=== PATIENT | male | born 1945 | race Caucasian/White ===

== ENCOUNTER 2016-05-10 13:00 | Outpatient (CLI) | payer MEDICARE, MEDICAID | END 2016-05-10 23:59 | disposition home or self-care (01) | LOC: WOU 13:00 | PROVIDERS: ATTEND Podiatrist Foot & Ankle Surgery | PROC: 0HBRXZZ Excision of Toe Nail, External Approach (ICD-10-PCS; principal; 2016-05-10) | DX: B35.1 Tinea unguium (principal); M79.675 Pain in left toe(s); M79.674 Pain in right toe(s); L60.8 Other nail disorders; I69.359 Hemiplegia and hemiparesis following cerebral infarction affecting unspecified side | CPT/HCPCS: G0463 ==

== ENCOUNTER 2016-10-27 10:12 | Emergency (ER) | payer MEDICARE, MEDICAID ==
[~2016-10-27] VITALS: Ht 172.7 cm; Wt 68.0 kg
--- NOTE | 2016-10-27 10:18 | NUR ---
ABDOMINAL PAIN SINCE LAST NIGHT. STACIA N/V/Italo. LORENA PT. AWAITING MD ORDER
[2016-10-27] MEDS ORDERED: KETOROLAC TROMETHAMINE INJ 30 MG/ML VIAL ONE (10:43)
[2016-10-27 10:51] LABS: BASOPHILS % (AUTO) 0.2 % (0.0-2.0); EOSINOPHILS % (AUTO) 0.2 % (0.0-6.0); HEMATOCRIT 45 % (39-51); HEMOGLOBIN 14.7 g/dL (13.5-17.5); LYMPHOCYTES # (AUTO) 1.2 /CMM (0.8-4.8); LYMPHOCYTES % (AUTO) 9.1 % (20.0-44.0); MEAN CORPUSCULAR HEMOGLOBIN 29 PG (26.0-33.0); MEAN CORPUSCULAR HGB CONC 33 g/dl (31.0-36.0); MEAN CORPUSCULAR VOLUME 87 fL (80-96); MONOCYTES # (AUTO) 0.7 /CMM (0.1-1.30); MONOCYTES % (AUTO) 5.6 % (2.0-12.0); NEUTROPHILS # (AUTO) 11.1 /CMM (1.8-8.9); NEUTROPHILS % (AUTO) 84.9 % (43.0-81.0); PLATELET COUNT (AUTO) 178 /CMM (150-450); RDW COEFFICIENT OF VARIATION 13.1 (11.5-15.0); RED BLOOD CELL COUNT(AUTO) 5.15 MIL/uL (4.5-6.0)
[2016-10-27] MEDS ORDERED: KETOROLAC TROMETHAMINE 15 MG/ML VIAL ONE (10:57)
--- NOTE | 2016-10-27 10:57 | NUR ---
VERBAL ORDER FROM DR ABBE GUTHRIE TORADOL 30 MG IV CHANGE TO TORADOL 15 MG IVP
[2016-10-27] MEDS ORDERED: KETOROLAC TROMETHAMINE INJ 30 MG/ML VIAL IV ONE ×2 (11:00→14:30)
[2016-10-27 11:05] LABS: ALANINE AMINOTRANSFERASE 17 U/L (12-78); ALKALINE PHOSPHATASE 87 U/L (46-116); ASPARTATE AMINOTRANSFERASE 21 U/L (15-37); BILIRUBIN,TOTAL 0.6 mg/dL (0.2-1.0); CALCIUM, SERUM 9.1 mg/dL (8.5-10.1); CARBON DIOXIDE 28 mmol/L (21-32); CHLORIDE 104 mmol/L (98-107); CREATININE 1.5 mg/dL (0.6-1.3); GLUCOSE 127 mg/dL (74-106); POTASSIUM 3.9 mmol/L (3.5-5.1); SODIUM SERUM 140 mmol/L (136-145); TOTAL PROTEIN, SERUM 7.3 g/dL (6.4-8.2); UREA NITROGEN, BLOOD 20 mg/dL (7-18)
--- NOTE | 2016-10-27 11:29 | NUR ---
CALLED RADIOLOGY TO FOLLOW UP W ULTRASOUND
--- NOTE | 2016-10-27 11:29 | NUR ---
PT STILL UNABLE TO PROVIDE URINE SAMPLE DR MCADAMS MADE AWARE
--- NOTE | 2016-10-27 12:11 | NUR ---
PRITI GAUTAM [facility] [phone]
--- NOTE | 2016-10-27 12:18 | NUR ---
WATER CONTROL STATION ENGINEER AT BEDSIDE
--- NOTE | 2016-10-27 12:32 | NUR ---
PT UNABLE TO PROVIDE URINE PER PT DUE TO PROSTATE PROBLEM. VERBAL ORDER DR ABBE MCDONNELL STRAIGHT IN AND OUT
--- NOTE | 2016-10-27 13:01 | NUR ---
URINE SAMPLE COLLECTED SENT TO LAB
[2016-10-27 13:28] LABS: APPEARANCE,URINE Clear (CLEAR); BILIRUBIN,URINE SMALL (NEGATIVE); BLOOD, URINE Large Ery/uL (NEGATIVE); COLOR,URINE Yellow (YELLOW); KETONES,URINE Trace (NEGATIVE); LEUKOCYTE ESTERASE ,URINE Trace (NEGATIVE); NITRITE, URINE Negative (NEGATIVE); PH,URINE 5.5 (5.0-8.0); PROTEIN,URINE 100 mg/dl (NEGATIVE); UGLUCOSE Negative (NEGATIVE); UROBILINOGEN,URINE 0.2 EU/dL (0.2)
[2016-10-27] MEDS ORDERED: ONDANSETRON 4 MG TAB.RAPDIS ONE (13:28)
[2016-10-27 13:30] LABS: BACTERIA,URINE 1+ /HPF (None Seen); RBC,URINE 21-50 /HPF (0-2); SQUAMOUS EPITHELIAL CELL,UR Few /HPF (None Seen)
--- NOTE | 2016-10-27 13:30 | NUR ---
VERBAL ORDER FROM DR ABBE GARCIA 4 MG SL X1 NV
[2016-10-27 14:10] VITALS: BP 147/83
[2016-10-27] MEDS ORDERED: ONDANSETRON HCL/PF - ER 4 MG/2 ML VIAL IV ONE (14:30)
[2016-10-27] MEDS ORDERED: CIPROFLOXACIN IV RTU 400 MG in PREMIX 1 EA IV SCH (14:30)
--- NOTE | 2016-10-27 15:13 | NUR ---
Patient discharged to home in stable condition. Written and verbal after care instructions given. Patient verbalizes understanding of instruction.
--- NOTE | 2016-10-27 15:13 | NUR ---
IV removed. Catheter intact and site benign. Pressure and 4x4 applied to site. No bleeding noted.
== END 2016-10-27 15:28 | disposition home or self-care (01) ==
LOC: ER 10:16
DX: N45.2 Orchitis (principal); E78.5 Hyperlipidemia, unspecified; I10 Essential (primary) hypertension; N40.0 Benign prostatic hyperplasia without lower urinary tract symptoms
CPT/HCPCS: 36415; 76870; 80053; 81001; 85025; 87086; 96365; 96375; 99285; A4216; A4606; J0744; J1885; J2405; Q0162; 81000-TC; Z7610

== ENCOUNTER 2018-06-05 11:30 | Outpatient (CLI) | payer MEDICARE, MEDICAID | END 2018-06-05 23:59 | disposition home or self-care (01) | LOC: WOU 11:30 | PROVIDERS: ATTEND Podiatrist Foot & Ankle Surgery | DX: B35.1 Tinea unguium (principal); T84.84XA Pain due to internal orthopedic prosthetic devices, implants and grafts, initial encounter; M25.571 Pain in right ankle and joints of right foot; I69.359 Hemiplegia and hemiparesis following cerebral infarction affecting unspecified side; B35.3 Tinea pedis; M65.871 Other synovitis and tenosynovitis, right ankle and foot; I70.229 Atherosclerosis of native arteries of extremities with rest pain, unspecified extremity | CPT/HCPCS: 73600; 87102; 93925; 93970; G0463; 88304-TC; 88311-TC; 88312-TC ==

== ENCOUNTER 2019-12-08 10:38 | Emergency (ER) | payer MEDICARE, OTHER ==
[~2019-12-08] VITALS: Ht 162.6 cm; Wt 74.8 kg
--- NOTE | 2019-12-08 11:15 | NUR ---
bib self with c/o bilateral foot pain of 4/10 x 3 days. no swelling no discoloration. no episode of fall. awaiting for md good
--- NOTE | 2019-12-08 11:48 | NUR ---
seen and evaluated by MD Peoples with new orders noted.
--- NOTE | 2019-12-08 12:08 | NUR ---
X-RAY TECH AT BEDSIDE DOING X RAY
[2019-12-08 15:35] VITALS: BP 132/76
== END 2019-12-08 15:20 | disposition home or self-care (01) ==
LOC: ER 10:47
DX: I73.9 Peripheral vascular disease, unspecified (principal); M79.672 Pain in left foot; M79.671 Pain in right foot; I10 Essential (primary) hypertension; E78.5 Hyperlipidemia, unspecified; N40.0 Benign prostatic hyperplasia without lower urinary tract symptoms
CPT/HCPCS: 73630-TC; 93926-TC

== ENCOUNTER 2020-05-17 13:49 | Emergency (ER) | payer MEDICARE, OTHER ==
[~2020-05-17] VITALS: Ht 172.7 cm; Wt 72.6 kg
[2020-05-17 14:11] VITALS: BP 157/75
--- NOTE | 2020-05-17 15:28 | NUR ---
Patient a/ox4, ambulatory with steady gait. No distress noted. Patient discharged to home in stable condition. Written and verbal after care instructions given. Patient verbalizes understanding of instruction.
== END 2020-05-17 15:29 | disposition home or self-care (01) ==
LOC: ER 14:02
DX: M77.32 Calcaneal spur, left foot (principal); M79.672 Pain in left foot; I73.89 Other specified peripheral vascular diseases; I10 Essential (primary) hypertension; E78.5 Hyperlipidemia, unspecified
CPT/HCPCS: 73630-TC

== ENCOUNTER 2020-09-05 11:00 | Outpatient (CLI) | payer MEDICARE, OTHER | END 2020-09-05 23:59 | disposition home or self-care (01) | LOC: WOU 11:00 | PROVIDERS: ATTEND Podiatrist Foot & Ankle Surgery | DX: M72.2 Plantar fascial fibromatosis (principal); L60.2 Onychogryphosis; M79.672 Pain in left foot; B35.1 Tinea unguium; M79.675 Pain in left toe(s); M79.674 Pain in right toe(s); Z79.02 Long term (current) use of antithrombotics/antiplatelets; Z79.82 Long term (current) use of aspirin | CPT/HCPCS: 11042; 11055; G0463 ==

== ENCOUNTER 2020-10-25 16:01 | Outpatient (CLI) | payer MEDICARE, OTHER | END 2020-10-25 23:59 | disposition home or self-care (01) | LOC: WOU 16:01 | PROVIDERS: ATTEND Podiatrist Foot & Ankle Surgery | DX: M72.2 Plantar fascial fibromatosis (principal); B35.1 Tinea unguium; L60.2 Onychogryphosis; M79.672 Pain in left foot; M79.675 Pain in left toe(s); M79.674 Pain in right toe(s); Z79.82 Long term (current) use of aspirin; Z79.02 Long term (current) use of antithrombotics/antiplatelets | CPT/HCPCS: G0463 ==

== ENCOUNTER 2020-12-12 11:23 | Emergency (ER) | payer MEDICARE, OTHER ==
[~2020-12-12] VITALS: Ht 172.7 cm; Wt 83.9 kg
[2020-12-12 11:37] VITALS: BP 162/72
[2020-12-12] MEDS ORDERED: ACETAMINOPHEN ES 500 MG TABLET PO ONE (12:00)
[2020-12-12] MEDS ORDERED: ACETAMINOPHEN ES 500 MG TABLET ONE (12:05)
== END 2020-12-12 13:00 | disposition home or self-care (01) ==
LOC: ER 11:27
DX: M79.672 Pain in left foot (principal); I10 Essential (primary) hypertension; E78.5 Hyperlipidemia, unspecified
CPT/HCPCS: 73630-TC

== ENCOUNTER 2021-03-02 12:45 | Emergency (ER) | payer MEDICARE, OTHER ==
[~2021-03-02] VITALS: Ht 170.2 cm; Wt 77.1 kg
--- NOTE | 2021-03-02 13:33 | NUR ---
L INNER THIGH/GROIN AREA PAIN X 2 DAYS. DENIES ANY TRAUMA. PT ALSO C/O CHRONIC L FOOT PAIN. BREATHING IS REGULAR AND UNLABORED. PT AWAITING MD ORDONEZ.
[2021-03-02] MEDS: ACETAMINOPHEN 325 MG TABLET PO ONE (15:30)
[2021-03-02] MEDS ORDERED: ACETAMINOPHEN 325 MG TABLET ONE ×2 (15:34→15:56)
--- NOTE | 2021-03-02 16:01 | NUR ---
Patient discharged to home in stable condition. Written and verbal after care instructions given. Patient verbalizes understanding of instruction.
--- NOTE | 2021-03-02 16:02 | NUR ---
650MG OF TYLENOL WASTED.
[2021-03-02 16:03] VITALS: BP 155/86
--- NOTE | 2021-03-02 16:03 | NUR ---
Patient discharged to home in stable condition. Written and verbal after care instructions given. Patient verbalizes understanding of instruction.
== END 2021-03-02 16:04 | disposition home or self-care (01) ==
LOC: ER 12:56
DX: M79.652 Pain in left thigh (principal); I10 Essential (primary) hypertension; E78.5 Hyperlipidemia, unspecified
CPT/HCPCS: 73552; 93971-TC

== ENCOUNTER 2021-04-05 13:37 | Inpatient (IN) | payer MEDICARE, OTHER ==
[~2021-04-05] VITALS: Ht 172.7 cm; Wt 79.4 kg
--- NOTE | 2021-04-05 14:01 | NUR ---
WALK-IN FROM HOME AOX4 C/O L LEG PAIN SINCE YESTERDAY. DENIES INJURY OR TRAUMA. PT CHANGED INTO GOWN. AWAITING MD ORDONEZ.
--- NOTE | 2021-04-05 14:37 | NUR ---
XRAY AT BEDSIDE
--- NOTE | 2021-04-05 15:41 | NUR ---
PT CAME FROM [facility] CONFIRM WITH AMANDA [phone]. WILL ACCEPT PT BACK ONCE MEDICALLY CLEARED.
[2021-04-05 15:45] LABS: BASOPHILS % (AUTO) 0.5 % (0.0-2.0); EOSINOPHILS % (AUTO) 0.8 % (0.0-6.0); HEMATOCRIT 39 % (39-51); HEMOGLOBIN 13.1 g/dL (13.5-17.5); LYMPHOCYTES # (AUTO) 1.4 K/uL (0.8-4.8); LYMPHOCYTES % (AUTO) 17.3 % (20.0-44.0); MEAN CORPUSCULAR HGB CONC 33 g/dl (31.0-36.0); MEAN CORPUSCULAR VOLUME 91 fL (80-96); MONOCYTES # (AUTO) 0.7 K/uL (0.1-1.30); NEUTROPHILS # (AUTO) 5.9 K/uL (1.8-8.9); NEUTROPHILS % (AUTO) 72.4 % (43.0-81.0); PLATELET COUNT (AUTO) 172 K/uL (150-450); RED BLOOD CELL COUNT(AUTO) 4.31 MIL/uL (4.5-6.0); WHITE BLOOD COUNT (AUTO) 8.2 K/uL (4.3-11.0)
[2021-04-05] MEDS ORDERED: FERR325T23 PO (15:48)
[2021-04-05] MEDS ORDERED: TICA90TA PO (15:48)
[2021-04-05] MEDS ORDERED: FINA5TAB3 PO (15:48)
[2021-04-05] MEDS ORDERED: LOSA100T31 PO (15:48)
[2021-04-05] MEDS ORDERED: ASPI-1169 PO (15:48)
[2021-04-05] MEDS ORDERED: TAMS-12 PO (15:48)
[2021-04-05] MEDS ORDERED: SIMV-46 PO (15:48)
--- NOTE | 2021-04-05 16:08 | NUR ---
COVID ANTIGEN SWAB COLLECTED
[2021-04-05 16:16] LABS: CALCIUM, SERUM 9.4 mg/dL (8.5-10.1); CREATININE 1.3 mg/dL (0.6-1.3); POTASSIUM 4.3 mmol/L (3.5-5.1)
[2021-04-05 16:17] LABS: CALCIUM, SERUM 9.5 mg/dL (8.5-10.1); CREATININE 1.3 mg/dL (0.6-1.3); POTASSIUM 4.4 mmol/L (3.5-5.1)
[2021-04-05 16:22] LABS: ALBUMIN 3.8 g/dL (3.4-5.0); BILIRUBIN,TOTAL 0.5 mg/dL (0.2-1.0); TOTAL PROTEIN, SERUM 7.4 g/dL (6.4-8.2)
[2021-04-05 16:23] LABS: ALBUMIN 3.8 g/dL (3.4-5.0); BILIRUBIN,DIRECT 0.2 mg/dL (0.0-0.2); BILIRUBIN,TOTAL 0.5 mg/dL (0.2-1.0); TOTAL PROTEIN, SERUM 7.4 g/dL (6.4-8.2)
--- NOTE | 2021-04-05 16:24 | NUR ---
IV LINE ESTABLISHED
[2021-04-05] MEDS ORDERED: Z GUARD REMEDY 4 OZ OINT TP PRN (16:30)
[2021-04-05] MEDS ORDERED: MAG HYDROX/AL HYDROX/SIMETH 30 ML UDC PO PRN (16:30)
[2021-04-05] MEDS ORDERED: ONDANSETRON HCL/PF 4 MG/2 ML VIAL IVP PRN (16:30)
[2021-04-05] MEDS ORDERED: TEMAZEPAM 15 MG CAPSULE PO PRN (16:30)
[2021-04-05] MEDS ORDERED: ACETAMINOPHEN 325 MG TABLET PO PRN (16:30)
[2021-04-05] MEDS ORDERED: HYDROCODONE/APAP 5/325MG TABLET PO PRN (16:30)
[2021-04-05] MEDS ORDERED: MAGNESIUM HYDROXIDE 30 ML UDC PO PRN (16:30)
--- NOTE | 2021-04-05 17:05 | NUR ---
PT AMBULATED TO BATHROOM
--- NOTE | 2021-04-05 17:54 | NUR ---
DR.AMIR ELIAS PT PRIMARY .
--- NOTE | 2021-04-05 17:56 | NUR ---
PT ALPA GAUTAM.
[2021-04-05] MEDS ORDERED: APIXABAN 5 MG TABLET ONE (18:48)
[2021-04-05] MEDS: APIXABAN 5 MG TABLET PO SCH (18:50)
--- NOTE | 2021-04-05 20:01 | NUR ---
PATIENT ROOM MOVED TO BED 12. EATING DINNNER. VERY CONFUSED.
--- NOTE | 2021-04-05 20:38 | NUR ---
ASSIGNED TO [place] [id number]
--- NOTE | 2021-04-05 20:44 | NUR ---
report given to 3 suzie rn
--- NOTE | 2021-04-05 21:08 | NUR ---
PT TRANSFERRED TO THRID FLOOR, VSS, IV LINE INTACT IN PLACE 20G LFA.
[2021-04-05] MEDS ORDERED: TAMSULOSIN 0.4 MG CAP.SR.24H PO SCH (22:00)
[2021-04-05] MEDS ORDERED: SIMVASTATIN 20 MG TABLET PO SCH (22:00)
[2021-04-05 23:04] VITALS: BP 151/62
--- NOTE | 2021-04-06 06:24 | NUR ---
MS RN NOTES AWAKE & RESPONSIVE. NOT IN ANY DISTRESS. NO SOB NOTED. DENIES ANY PAIN OR DISCOMFORT AT THIS TIME. WITH IV-HL PATENT & INTACT. MONITORED ACCORDINGLY. CALL LIGHT WITHIN REACH. BED IN LOWEST POSITION. SR UP X 2 FOR SAFETY. WILL ENDORSE TO NEXT SHIFT.
[2021-04-06 06:51] LABS: BASOPHILS % (AUTO) 0.3 % (0.0-2.0); EOSINOPHILS % (AUTO) 1.1 % (0.0-6.0); HEMATOCRIT 40 % (39-51); HEMOGLOBIN 13.6 g/dL (13.5-17.5); LYMPHOCYTES # (AUTO) 1.6 K/uL (0.8-4.8); LYMPHOCYTES % (AUTO) 21.7 % (20.0-44.0); MEAN CORPUSCULAR HGB CONC 34 g/dl (31.0-36.0); MEAN CORPUSCULAR VOLUME 91 fL (80-96); MONOCYTES # (AUTO) 0.7 K/uL (0.1-1.30); MONOCYTES % (AUTO) 9.7 % (2.0-12.0); NEUTROPHILS # (AUTO) 4.9 K/uL (1.8-8.9); NEUTROPHILS % (AUTO) 67.2 % (43.0-81.0); PLATELET COUNT (AUTO) 163 K/uL (150-450); RED BLOOD CELL COUNT(AUTO) 4.36 MIL/uL (4.5-6.0); WHITE BLOOD COUNT (AUTO) 7.3 K/uL (4.3-11.0)
[2021-04-06 07:23] LABS: CALCIUM, SERUM 9.2 mg/dL (8.5-10.1); CREATININE 1.2 mg/dL (0.6-1.3); MAGNESIUM 1.9 mg/dL (1.8-2.4); PHOSPHORUS 3.9 mg/dL (2.5-4.9); POTASSIUM 4.3 mmol/L (3.5-5.1)
[2021-04-06] MEDS ORDERED: PANTOPRAZOLE 40 MG TABLET.DR PO SCH (07:30)
--- NOTE | 2021-04-06 07:52 | NUR ---
MS RN OPENING NOTES RECEIVED PATIENT WALKING IN THE ROOM, DRESSED UP AND WILLING TO GO HOME. AT THIS TIME WAITING FOR THE DOCTOR. A/O X3. PATIENT ON ROOM AIR; BREATHING EVEN AND UNLABORED. NO COMPLAINS OF PAIN AT THIS TIME. REMOVED HIS IV LINE RECOVERY AGENT AND REFUSES REINSERTION AT THIS TIME. SAFETY PRECAUTIONS IN PLACE; BED IN LOW POSITION AND LOCKED, RAILS UP X2, CALL LIGHT WITHIN REACH. WILL CONTINUE TO MONITOR PATIENT.
[2021-04-06] MEDS: APIXABAN 5 MG TABLET PO SCH (08:25)
[2021-04-06 08:30] VITALS: BP 129/62
[2021-04-06] MEDS ORDERED: FINASTERIDE (5 MG) 5 MG TABLET PO SCH (09:00)
[2021-04-06] MEDS ORDERED: FERROUS SULFATE (325 MG) 325 MG/TAB TABLET PO SCH (09:00)
[2021-04-06] MEDS ORDERED: LOSARTAN POTASSIUM 50 MG TABLET PO SCH (09:00)
[2021-04-06] MEDS ORDERED: ASPIRIN 81 MG TAB.CHEW PO SCH (09:00)
[2021-04-06] MEDS ORDERED: TICAGRELOR 90 MG TABLET PO SCH (09:00)
[2021-04-06 09:14] LABS: THYROID STIMULATING HORMONE 1.893 uIU/mL (0.358-3.74)
[2021-04-06] MEDS ORDERED: APIX5TAB PO ×2 (09:14)
--- NOTE | 2021-04-06 14:14 | NUR ---
MS HUMAN RESOURCES TEAM MEMBER NOTES PATIENT DISCHARGED HOME IN MEDICALLY STABLE CONDITION. PATIENT ABLE TO MAKE NEEDS KNOWN. ALL DISCHARGE PAPERWORK READY AND TEACHING PROVIDED TO PATIENT REGARDING DISCHARGE INSTRUCTIONS; PATIENT VERBALIZED UNDERSTANDING. BELONGINGS ACCOUNTED FOR AND PAERWORK SIGNED BY PATIENT. MEDICATION PRESCRIPTION GIVEN TO PATIENT AND EXPLAINED MEDICATION INDICATION AND POSSIBLE SIDE EFFECTS. PATIENT VERBALIZED UNDERSTANDING. IV ACCESS REMOVED. PATIENT LEFT THE FLOOR ACCOMPANIED BY RN. OUTSIDE MET BY FRIEND AND LEFT THE HOSPITAL VIA PRIVATE CAR.
== END 2021-04-06 14:15 | DRG 301 ==
LOC: ER 13:47 → TRANSITION 17:10 → MED 21:10
PROVIDERS: ADMIT Nurse Practitioner Acute Care; ATTEND Legal Medicine
DX: I82.412 Acute embolism and thrombosis of left femoral vein (principal); I25.10 Atherosclerotic heart disease of native coronary artery without angina pectoris; F03.90 Unspecified dementia, unspecified severity, without behavioral disturbance, psychotic disturbance, mood disturbance, and anxiety; D63.8 Anemia in other chronic diseases classified elsewhere; I73.9 Peripheral vascular disease, unspecified; I10 Essential (primary) hypertension; Z86.73 Personal history of transient ischemic attack (TIA), and cerebral infarction without residual deficits; E78.5 Hyperlipidemia, unspecified; N40.0 Benign prostatic hyperplasia without lower urinary tract symptoms; Z87.891 Personal history of nicotine dependence; Z91.19 Patient's noncompliance with other medical treatment and regimen; R79.89 Other specified abnormal findings of blood chemistry; Z20.822 Contact with and (suspected) exposure to COVID-19
CPT/HCPCS: 36415; 71045-TC; 73590-TC; 80048-TC; 80053-TC; 80076-TC; 83735-TC; 84100-TC; 84443-TC; 85025-TC; 85730-TC; 87081-TC; 93971-TC; 97116-TC; 97530-TC; G0378

== ENCOUNTER 2021-04-18 11:27 | Emergency (ER) | payer MEDICARE, MEDICAID ==
[~2021-04-18] VITALS: Ht 167.6 cm; Wt 68.0 kg
[~2021-04-18 11:27] MED LIST: ASPI-1169 PO; FERR325T23 PO; FINA5TAB3 PO; LOSA100T31 PO; SIMV-46 PO; TAMS-12 PO; TICA90TA PO
[2021-04-18 11:41] VITALS: BP 136/74
[2021-04-18] MEDS ORDERED: HYDROCODONE/APAP 5/325MG TABLET PO ONE (12:30)
[2021-04-18] MEDS ORDERED: HYDROCODONE/APAP 5/325MG TABLET ONE (12:30)
--- NOTE | 2021-04-18 12:31 | NUR ---
CALLED DR. ELIAS OFFICE [phone] CALLING BACK AFTER LUNCH.
--- NOTE | 2021-04-18 13:08 | NUR ---
[facility]: [phone] CARLO GAUTAM [phone]
--- NOTE | 2021-04-18 13:14 | NUR ---
[facility] CALLED FOR TRANSPORT ETA 60 MINS.
--- NOTE | 2021-04-18 13:15 | NUR ---
Called [facility]. Per staff, unable to send transportation for pick out hand due to no locomotive driver available today. Primary RN aware.
--- NOTE | 2021-04-18 14:44 | NUR ---
CALLED [facility] FOR UPDATE NEW ETA 10 MINS.
--- NOTE | 2021-04-18 15:05 | NUR ---
REPORT GIVEN TO EMT FOR PT TRANSFER BACK TO LONG TERM.
== END 2021-04-18 15:06 | disposition home or self-care (01) ==
LOC: ER 11:33
DX: I82.402 Acute embolism and thrombosis of unspecified deep veins of left lower extremity (principal); I10 Essential (primary) hypertension; E78.5 Hyperlipidemia, unspecified; Z60.2 Problems related to living alone; Z79.899 Other long term (current) drug therapy; Z79.82 Long term (current) use of aspirin

== ENCOUNTER 2021-04-24 09:57 | Emergency (ER) | payer MEDICARE, OTHER ==
[~2021-04-24] VITALS: Ht 167.6 cm; Wt 73.3 kg
[2021-04-24 10:16] VITALS: BP 127/83
[2021-04-24] MEDS ORDERED: ACETAMINOPHEN ES 500 MG TABLET ONE (10:49)
--- NOTE | 2021-04-24 10:51 | NUR ---
CALLED [facility] TO SET UP BLS TRANSPORT BACK TO [facility] ETA 1136
[2021-04-24] MEDS ORDERED: ACETAMINOPHEN ES 500 MG TABLET PO ONE (11:00)
--- NOTE | 2021-04-24 11:52 | NUR ---
seen and evaluated by dr vargas. medically cleared. [facility] condition.
== END 2021-04-24 11:53 | disposition home or self-care (01) ==
LOC: ER 09:59
DX: I82.402 Acute embolism and thrombosis of unspecified deep veins of left lower extremity (principal); F03.90 Unspecified dementia, unspecified severity, without behavioral disturbance, psychotic disturbance, mood disturbance, and anxiety; I10 Essential (primary) hypertension; E78.5 Hyperlipidemia, unspecified; Z60.2 Problems related to living alone; Z79.899 Other long term (current) drug therapy; Z79.82 Long term (current) use of aspirin

== ENCOUNTER → 2021-06-01 | Outpatient (CLI) | payer MEDICARE, OTHER | END | disposition home or self-care (01) | LOC: WOU 11:30 | PROVIDERS: ATTEND Podiatrist Foot & Ankle Surgery | DX: M72.2 Plantar fascial fibromatosis (principal); B35.1 Tinea unguium; R60.0 Localized edema; M79.672 Pain in left foot; Z79.82 Long term (current) use of aspirin; Z79.02 Long term (current) use of antithrombotics/antiplatelets | CPT/HCPCS: G0463 ==

== ENCOUNTER 2021-06-07 12:49 | Outpatient (CLI) | payer MEDICARE, OTHER | END 2021-06-07 23:59 | disposition home or self-care (01) | LOC: MRI 12:49 | PROVIDERS: ATTEND Podiatrist Foot & Ankle Surgery | DX: M77.32 Calcaneal spur, left foot (principal); M79.89 Other specified soft tissue disorders | CPT/HCPCS: 73718-TC; 73721-TC ==

== ENCOUNTER 2021-06-08 10:40 | Outpatient (CLI) | payer MEDICARE, OTHER | END 2021-06-08 23:59 | disposition home health service (06) | LOC: WOU 10:40 | PROVIDERS: ATTEND Podiatrist Foot & Ankle Surgery | DX: M72.2 Plantar fascial fibromatosis (principal); M77.32 Calcaneal spur, left foot; B35.1 Tinea unguium; R60.0 Localized edema; M79.672 Pain in left foot; Z79.82 Long term (current) use of aspirin; Z79.02 Long term (current) use of antithrombotics/antiplatelets | CPT/HCPCS: G0463 ==

== ENCOUNTER → 2021-07-03 | Emergency (ER) | payer MEDICARE, OTHER ==
[~2021-07-03] VITALS: Ht 172.7 cm; Wt 73.5 kg
[~2021-07-03] MED LIST changes: +APIX5TAB4 PO; +APIXABAN 5 MG TABLET ONE; +APIXABAN 5 MG TABLET PO SCH
--- NOTE | 2021-07-03 10:06 | NUR ---
BIBS FOR C/O RIGHT FOOT PAIN 08/03 AND LEFT CALF PAIN 6/10 X FEW DAYS. DENIES INJURY. NO SWELLLING NOTED. WILL CONTINUE TO MONITOR THE PATIENT.
--- NOTE | 2021-07-03 10:06 | NUR ---
DR NICHOLE AT THE BEDSIDE
--- NOTE | 2021-07-03 12:11 | NUR ---
RECEIVED CALL THAT PT HAS +DVT IN R SUPERFICIAL VEIN AND L SUPERFICIAL VEIN
--- NOTE | 2021-07-03 12:14 | NUR ---
DR NICHOLE AND PRIMARY RN MADE AWARE OF DVT. DR NICHOLE AT BEDSIDE
[2021-07-03 12:25] LABS: BASOPHILS % (AUTO) 0.2 % (0.0-2.0); EOSINOPHILS % (AUTO) 0.9 % (0.0-6.0); HEMATOCRIT 35 % (39-51); HEMOGLOBIN 11.7 g/dL (13.5-17.5); LYMPHOCYTES # (AUTO) 1.2 K/uL (0.8-4.8); MEAN CORPUSCULAR HGB CONC 34 g/dl (31.0-36.0); MEAN CORPUSCULAR VOLUME 91 fL (80-96); MONOCYTES # (AUTO) 0.7 K/uL (0.1-1.30); NEUTROPHILS # (AUTO) 5.4 K/uL (1.8-8.9); NEUTROPHILS % (AUTO) 73.9 % (43.0-81.0); PLATELET COUNT (AUTO) 198 K/uL (150-450); RED BLOOD CELL COUNT(AUTO) 3.84 MIL/uL (4.5-6.0); WHITE BLOOD COUNT (AUTO) 7.3 K/uL (4.3-11.0)
[2021-07-03 12:31] LABS: CALCIUM, SERUM 9.7 mg/dL (8.5-10.1); CARBON DIOXIDE 27 mmol/L (21-32); CHLORIDE 107 mmol/L (98-107); CREATININE 1.4 mg/dL (0.6-1.3); GLUCOSE 98 mg/dL (74-106); POTASSIUM 4.5 mmol/L (3.5-5.1); SODIUM SERUM 142 mmol/L (136-145); UREA NITROGEN, BLOOD 23 mg/dL (7-18)
--- NOTE | 2021-07-03 13:20 | NUR ---
DR ELIAS PAGEItalo
[2021-07-03 14:30] VITALS: BP 133/78
--- NOTE | 2021-07-03 14:30 | NUR ---
Patient discharged to home in stable condition. Rx,Written and verbal after care instructions given. Patient verbalizes understanding of instruction.
== END | disposition home or self-care (01) ==
LOC: ER 09:50
DX: I82.413 Acute embolism and thrombosis of femoral vein, bilateral (principal); I10 Essential (primary) hypertension; E78.5 Hyperlipidemia, unspecified; Z79.899 Other long term (current) drug therapy
CPT/HCPCS: 36415; 73590-TC; 80048-TC; 85025-TC; 85730-TC; 93970-TC

== ENCOUNTER 2021-07-15 09:52 | Inpatient (IN) | payer MEDICARE, OTHER ==
[~2021-07-15] VITALS: Ht 172.7 cm; Wt 72.6 kg
[~2021-07-15 09:52] MED LIST changes: -APIXABAN 5 MG TABLET ONE; -APIXABAN 5 MG TABLET PO SCH
--- NOTE | 2021-07-15 09:53 | NUR ---
BIBRA 860 FROM HOME C/O L LEG PAIN X 2 WEEKS SEEN HERE MULTIPLE TIMES FOR SAME CC. PT ATTCHED TO MONITOR, NO RESP DISTRESS NOTED. DR NICHOLE AT BEDSIDE.
--- NOTE | 2021-07-15 10:21 | NUR ---
IV ESTABLISHED L FA 18G. LABS DRAWN AND COLLECTED AT BEDSIDE.
--- NOTE | 2021-07-15 10:25 | NUR ---
COVID SWAB COLLECTED AND SENT
--- NOTE | 2021-07-15 10:55 | NUR ---
ULTRASOUND AT BEDSIDE
[2021-07-15] MEDS ORDERED: IV NS 0.9% 250 ML BAG IV ONE (11:00)
--- NOTE | 2021-07-15 11:10 | NUR ---
MOVE SHEET SUBMITTED.
[2021-07-15 11:11] LABS: BASOPHILS % (AUTO) 0.2 % (0.0-2.0); EOSINOPHILS % (AUTO) 0.9 % (0.0-6.0); HEMATOCRIT 32 % (39-51); HEMOGLOBIN 10.8 g/dL (13.5-17.5); LYMPHOCYTES % (AUTO) 15.4 % (20.0-44.0); MEAN CORPUSCULAR HGB CONC 33 g/dl (31.0-36.0); MEAN CORPUSCULAR VOLUME 91 fL (80-96); MONOCYTES % (AUTO) 10.2 % (2.0-12.0); NEUTROPHILS % (AUTO) 73.3 % (43.0-81.0); PLATELET COUNT (AUTO) 171 K/uL (150-450); RED BLOOD CELL COUNT(AUTO) 3.57 MIL/uL (4.5-6.0); WHITE BLOOD COUNT (AUTO) 6.2 K/uL (4.3-11.0)
[2021-07-15 11:12] LABS: MONOCYTES # (AUTO) 0.6 K/uL (0.1-1.30); NEUTROPHILS # (AUTO) 4.5 K/uL (1.8-8.9)
[2021-07-15] MEDS ORDERED: APIX5TAB PO (11:23)
[2021-07-15 11:25] LABS: CALCIUM, SERUM 9.1 mg/dL (8.5-10.1); CREATININE 1.3 mg/dL (0.6-1.3); POTASSIUM 4.4 mmol/L (3.5-5.1)
[2021-07-15] MEDS ORDERED: IOHEXOL-350 100 ML VIAL IV ONE (11:53)
[2021-07-15] MEDS ORDERED: CT SWABBABLE VALVE TRANS SET 1 EA INFUS.SET MC ONE (11:54)
[2021-07-15] MEDS ORDERED: IV NS 0.9% 250 ML IV ONE (11:54)
--- NOTE | 2021-07-15 11:58 | NUR ---
CAMILO ESTABLISHED R KYREE 18G.
[2021-07-15] MEDS ORDERED: ACETAMINOPHEN 325 MG TABLET PO PRN (12:00)
[2021-07-15] MEDS ORDERED: Z GUARD REMEDY 4 OZ OINT TP PRN (12:00)
[2021-07-15] MEDS ORDERED: ONDANSETRON HCL/PF 4 MG/2 ML VIAL IVP PRN (12:00)
[2021-07-15] MEDS ORDERED: MORPHINE SULFATE INJ 2 MG/ML DISP.SYRIN IV PRN (12:00)
--- NOTE | 2021-07-15 12:05 | NUR ---
PT TAKEN TO CT VIA ROCÍO
[2021-07-15] MEDS ORDERED: APIXABAN 5 MG TABLET ONE (12:29)
[2021-07-15] MEDS: IV NS 0.9% 1,000 ML IV SCH ×2 (12:38→21:35)
[2021-07-15] MEDS: APIXABAN 5 MG TABLET PO SCH ×2 (12:38→16:41)
--- NOTE | 2021-07-15 13:08 | NUR ---
ROOM GIVEN [id number]
--- NOTE | 2021-07-15 13:15 | NUR ---
REPORT GIVEN TO MALORIE FOR KOFFI
--- NOTE | 2021-07-15 14:18 | NUR ---
PT TRANSPORTED TO [facility] 3W IN STABLE CONDITION. PT ABLE TO AMBULATED TO HIS BED WITH ASSISTANCE AND HANDED OFF TO MEAGAN ESPANA.
--- NOTE | 2021-07-15 14:45 | NUR ---
USER EXPERIENCE RESEARCHER NOTES ADMITTED THIS 76 Y/O MALE PATIENT FROM [facility]. TRANSPORTED VIA GURNEY, ACCOMPANIED BY ER STAFF. PATIENT IS AWAKE, A/O X3, VERBALLY RESPONSIVE, NO SIGNS OF ACUTE RESPIRATORY DISTRESS NOTED. WITH ADMITTING DIAGNOSIS OF DVT. PATIENT ORIENTED TO ROOM. STABLE ON ROOM AIR. PLACED PATIENT ON MORTISING MACHINE OPERATOR, WITH CURRENT READING OF NSR HR @ 75. NOTED WITH IV ACCESS ON LEFT AC #18G, SALINE LOCKED AND LEFT FORE ARM #18G, INTACT AND PATENT WITH NS @105ML/HR RUNNING. BODY ASSESSMENT DONE. SKIN GENERALLY INTACT. NO SKIN ISSUES NOTED. VITAL SIGNS TAKEN, STABLE AND RECORDED. SAFETY MEASURE IN PLACE. BED IN LOWEST AND LOCKED POSITION, SIDE RAILS UP X2, CALL LIGHT PLACED WITHIN EASY REACH. BED ALARM ON. WILL CONTINUE TO MONITOR PATIENT.
[2021-07-15 15:00] VITALS: BP 148/64
--- NOTE | 2021-07-15 16:10 | NUR ---
RN NOTES PATIENT ACCIDENTALLY PULLED OUT IV ACCESS ON LEFT FORE ARM. PRESSURE DRESSING APPLIED TO SITE. REMINDED PATIENT TO CALL FOR NURSES ASSISTANCE IF HE NEEDS TO GO TO THE BATHROOM.
[2021-07-15] MEDS ORDERED: APIXABAN 5 MG TABLET PO SCH (17:00)
--- NOTE | 2021-07-15 18:46 | NUR ---
RN CLOSING NOTES PATIENT IN BED, AWAKE, NO SIGNS OF ACUTE DISTRESS NOTED. STABLE ON ROOM AIR. NO C/O PAIN AT THIS TIME. IV ACCESS ON LEFT AC #18G, INTACT AND PATENT, WITH NS @ 105 ML/HR RUNNING. ON TELE MONITOR CURRENT LY SHOWING SINUS RHYTHM, HR @ 79. SAFETY MEASURE MAINTAINED, BED IN LOWEST AND LOCKED POSITION, SIDE RAILS UP X2, CALL LIGHT PLACED WITHIN EASY REACH. BED ALARM ON. WILL ENDORSE TO NEXT SHIFT FOR CONTINUITY OF CARE.
--- NOTE | 2021-07-15 19:30 | NUR ---
RN OPENING NOTE PATIENT IN BED, AWAKE. PATIENT IS A/O X 2, ABLE TO MAKE NEEDS KNOWN. PATIENT IS VERY FORGETFUL. PATIENT ON TELE MONITORING SR 79 BPM. PATIENT HAS A LAC 18 G WITH NS ONGOING. PATIENT DOES NOT REPORT ANY PAIN O DISCOMFORT AT THIS TIME. SAFETY MEASURES IN PLACE: BED LOCKED AND IN LOWEST POSITION, CALL LIGHT WITHIN REACH, SIDE RAILS UP. WILL MONITOR PATIENT CLOSELY.
[2021-07-15 20:00] VITALS: BP 139/70
[2021-07-15] MEDS ORDERED: TAMSULOSIN 0.4 MG CAP.SR.24H PO SCH (22:00)
[2021-07-15] MEDS ORDERED: ATORVASTATIN 40 MG TABLET PO SCH (22:00)
[2021-07-16 02:00] VITALS: BP 129/64
[2021-07-16 04:00] VITALS: BP 148/66
[2021-07-16] MEDS: IV NS 0.9% 1,000 ML IV SCH (06:17)
[2021-07-16 06:19] LABS: BASOPHILS % (AUTO) 0.3 % (0.0-2.0); HEMATOCRIT 32 % (39-51); HEMOGLOBIN 10.9 g/dL (13.5-17.5); LYMPHOCYTES # (AUTO) 1.1 K/uL (0.8-4.8); LYMPHOCYTES % (AUTO) 18.5 % (20.0-44.0); MEAN CORPUSCULAR HGB CONC 35 g/dl (31.0-36.0); MEAN CORPUSCULAR VOLUME 90 fL (80-96); MONOCYTES # (AUTO) 0.6 K/uL (0.1-1.30); MONOCYTES % (AUTO) 10.2 % (2.0-12.0); NEUTROPHILS # (AUTO) 4.1 K/uL (1.8-8.9); PLATELET COUNT (AUTO) 163 K/uL (150-450); WHITE BLOOD COUNT (AUTO) 5.9 K/uL (4.3-11.0)
[2021-07-16 07:00] LABS: ALANINE AMINOTRANSFERASE 12 U/L (12-78); ALBUMIN 3.1 g/dL (3.4-5.0); ALKALINE PHOSPHATASE 73 U/L (46-116); ASPARTATE AMINOTRANSFERASE 14 U/L (15-37); BILIRUBIN,TOTAL 0.6 mg/dL (0.2-1.0); CALCIUM, SERUM 8.5 mg/dL (8.5-10.1); CARBON DIOXIDE 24 mmol/L (21-32); CHLORIDE 109 mmol/L (98-107); CREATININE 1.1 mg/dL (0.6-1.3); GLUCOSE 92 mg/dL (74-106); MAGNESIUM 1.8 mg/dL (1.8-2.4); PHOSPHORUS 3.5 mg/dL (2.5-4.9); SODIUM SERUM 140 mmol/L (136-145); TOTAL PROTEIN, SERUM 6.2 g/dL (6.4-8.2); UREA NITROGEN, BLOOD 20 mg/dL (7-18)
--- NOTE | 2021-07-16 07:04 | NUR ---
RN CLOSING NOTE PATIENT IN BED, AWAKE. PATIENT IS A/O X 2, ABLE TO MAKE NEEDS KNOWN. PATIENT IS VERY FORGETFUL. PATIENT ON TELE MONITORING SR 75 BPM. PATIENT HAS A LAC 18 G WITH 105 ML/HR ONGOING. PATIENT DOES NOT REPORT ANY PAIN OR DISCOMFORT AT THIS TIME. SAFETY MEASURES IN PLACE: BED LOCKED AND IN LOWEST POSITION, CALL LIGHT WITHIN REACH, SIDE RAILS UP. ALL NEEDS MET AND ATTENDED. ALL ORDERS CARRIED OUT. WILL ENDORSE TO DAY SHIFT NURSE FOR KOFFI.
--- NOTE | 2021-07-16 07:30 | NUR ---
ILIANA PIERSON Addendum: 07/16/21 at 1447 by DURAN KHAN RN ERROR
--- NOTE | 2021-07-16 07:30 | NUR ---
POUNCER OPENING NOTE RECEIVED PATIENT IN BED, AWAKE AND A/O X 2-3 WITH CONFUSION. ABLE TO MAKE NEEDS KNOWN. ON ROOM AIR TOLERATING WELL. NO SOB NOTED. NOT IN DISTRESS. WITH NO COMPLAINTS OF PAIN OR DISCOMFORT AT THIS TIME. ON TELE MONITOR CURRENTLY READING SR 75BPM. WITH IV ACCESS AT LEFT AC G18 WITH IVF NS AT 105MLHR INFUSING WELL. SAFETY MEASURES IN PLACE: BED LOCKED AND IN LOWEST POSITION, CALL LIGHT WITHIN REACH, SIDE RAILS UP. WILL CONTINUE TO MONITOR.
[2021-07-16 08:00] VITALS: BP 121/70
[2021-07-16] MEDS: APIXABAN 5 MG TABLET PO SCH (08:49)
[2021-07-16] MEDS ORDERED: FERROUS SULFATE (325 MG) 325 MG/TAB TABLET PO SCH (09:00)
[2021-07-16] MEDS ORDERED: ASPIRIN 81 MG TAB.CHEW PO SCH (09:00)
[2021-07-16] MEDS ORDERED: FINASTERIDE (5 MG) 5 MG TABLET PO SCH (09:00)
[2021-07-16] MEDS ORDERED: LOSARTAN POTASSIUM 50 MG TABLET PO SCH (09:00)
[2021-07-16 12:04] VITALS: BP 98/57
--- NOTE | 2021-07-16 14:40 | NUR ---
PULP GRINDER NOTES PATIENT WAS SEEN BY DR. ELIAS AND ORDERED PATIENT FOR DISCHARGE ASSISTED LIVING. DISCHARGE INSTRUCTION AND EDUCATION PROVIDED TO PATIENT AND EXPLAINED MEDICATIONS AND PRESCRIPTIONS. PATIENT VERBALIZED UNDERSTANDING. DISCHARGE FORM AND BELONGINGS LIST FORM SIGNED BY THE PATIENT. ALL BELONGINGS ACCOUNTED FOR. IV LINE AND WRIST BAND REMOVED. PATIENT WAS PICKED UP BY AMBULANCE PERSONNEL IN STABLE CONDITION. MD AND CHARGE NURSE ARE AWARE OF THE DISCHARGE.
== END 2021-07-16 14:40 | DRG 301 ==
LOC: ER 09:53 → TRANSITION 12:12 → TELE 13:17
PROVIDERS: ADMIT Internal Medicine; ATTEND Legal Medicine
DX: I73.9 Peripheral vascular disease, unspecified (principal); M79.662 Pain in left lower leg; Z86.718 Personal history of other venous thrombosis and embolism; N40.0 Benign prostatic hyperplasia without lower urinary tract symptoms; Z86.73 Personal history of transient ischemic attack (TIA), and cerebral infarction without residual deficits; E78.5 Hyperlipidemia, unspecified; Z79.01 Long term (current) use of anticoagulants; Z79.82 Long term (current) use of aspirin; Z20.822 Contact with and (suspected) exposure to COVID-19; F03.90 Unspecified dementia, unspecified severity, without behavioral disturbance, psychotic disturbance, mood disturbance, and anxiety; I10 Essential (primary) hypertension; M79.661 Pain in right lower leg
CPT/HCPCS: 36415; 80048-TC; 80053-TC; 83735-TC; 84100-TC; 85025-TC; 85730-TC; 87081-TC; 93971-TC; G0378; J7030; J7040; J7050; Q9967

== ENCOUNTER 2022-01-29 11:48 | Emergency (ER) | payer MEDICARE, OTHER ==
[~2022-01-29] VITALS: Ht 172.7 cm; Wt 66.2 kg
[~2022-01-29 11:48] MED LIST changes: +APIX5TAB PO; -APIX5TAB4 PO; -TICA90TA PO
--- NOTE | 2022-01-29 11:54 | NUR ---
TO ER BED 14. BIBS C/O PAIN IN MEDIAL ASPECT OF LEFT THIGH X 4 WEEKS. PAIN 5/10 ON PAIN SCALE. VITALS WITHIN NORMAL LIMITS. AWAITING MD ORDERS.
[2022-01-29] MEDS ORDERED: ENOXAPARIN SODIUM 60 MG/0.6 ML DISP.SYRIN SQ ONE (13:02)
--- NOTE | 2022-01-29 13:10 | NUR ---
MOVE SHEET SUBMITTED
[2022-01-29] MEDS: ENOXAPARIN SODIUM 60 MG/0.6 ML DISP.SYRIN SQ ONE (13:12)
--- NOTE | 2022-01-29 13:12 | NUR ---
IV ESTABLISHED R AC 18G. LABS DRAWN AND SENT
--- NOTE | 2022-01-29 13:14 | NUR ---
COVID TEST COLLECTED AND SENT
[2022-01-29 13:32] LABS: BASOPHILS % (AUTO) 0.2 % (0.0-2.0); EOSINOPHILS % (AUTO) 0.7 % (0.0-6.0); HEMATOCRIT 40 % (39-51); HEMOGLOBIN 13.3 g/dL (13.5-17.5); LYMPHOCYTES # (AUTO) 1.3 K/uL (0.8-4.8); LYMPHOCYTES % (AUTO) 19.6 % (20.0-44.0); MEAN CORPUSCULAR HGB CONC 33 g/dl (31.0-36.0); MEAN CORPUSCULAR VOLUME 89 fL (80-96); MONOCYTES # (AUTO) 0.7 K/uL (0.1-1.30); MONOCYTES % (AUTO) 10.5 % (2.0-12.0); NEUTROPHILS # (AUTO) 4.6 K/uL (1.8-8.9); PLATELET COUNT (AUTO) 168 K/uL (150-450); WHITE BLOOD COUNT (AUTO) 6.7 K/uL (4.3-11.0)
[2022-01-29] MEDS ORDERED: CYAN1TAB14 PO (13:45)
[2022-01-29] MEDS ORDERED: ERGO500040 PO (13:45)
[2022-01-29] MEDS ORDERED: CLOP75TA15 PO (13:45)
[2022-01-29] MEDS ORDERED: AMLO-212 PO (13:45)
[2022-01-29] MEDS ORDERED: ACET-2605 PO (13:45)
[2022-01-29 14:27] LABS: ALBUMIN 3.5 g/dL (3.4-5.0); BILIRUBIN,DIRECT 0.1 mg/dL (0.0-0.2); BILIRUBIN,TOTAL 0.4 mg/dL (0.2-1.0); CALCIUM, SERUM 9.2 mg/dL (8.5-10.1); CREATININE 1.2 mg/dL (0.6-1.3); POTASSIUM 4.3 mmol/L (3.5-5.1); TOTAL PROTEIN, SERUM 6.8 g/dL (6.4-8.2)
--- NOTE | 2022-01-29 14:28 | NUR ---
PRITI GAUTAM ([facility]) [phone] ELIAS [phone]
--- NOTE | 2022-01-29 15:23 | NUR ---
PT STATED THAT HE WANTS A BED UPSTAIRS AND WANTED TO GO HOME IF HE WASNT GIVEN A BED. PT WAS EXPLAINED THE RISKS OF LEAVING INCLUDING THE RISK OF THE BLOOD CLOT TRAVELING TO HIS LUNGS AND POSSIBLE . PT UNDERSTOOD THE RISKS AND INSITED ON LEAVING. PT IV REMOVED 2X2 APPLIED. PT ABLE TO AMBULATE ON HIS OWN WITHOUT ASSISTANCE.
[2022-01-29 15:28] VITALS: BP 134/74
== END 2022-01-29 15:29 | disposition left against medical advice (07) ==
LOC: ER 11:48
DX: I82.412 Acute embolism and thrombosis of left femoral vein (principal); Z79.82 Long term (current) use of aspirin; Z79.899 Other long term (current) drug therapy; E78.5 Hyperlipidemia, unspecified; Z86.718 Personal history of other venous thrombosis and embolism; Z91.14 Patient's other noncompliance with medication regimen; Z20.822 Contact with and (suspected) exposure to COVID-19; Z53.29 Procedure and treatment not carried out because of patient's decision for other reasons
CPT/HCPCS: 99284; 93971; 87426; 96372; 85025; 80048; 80076; 36415; 85730; J1650; C9803

== ENCOUNTER 2025-01-15 09:52 | Emergency (ER) | payer MEDICARE, OTHER ==
[~2025-01-15] VITALS: Ht 170.2 cm; Wt 64.9 kg
[~2025-01-15 09:52] MED LIST changes: +ACET-2605 PO; +AMLO-212 PO; +CLOP75TA15 PO; +CYAN1TAB14 PO; +ERGO500040 PO
[2025-01-15 13:28] VITALS: BP 124/70; TEMP 97.7; O2SAT 97
== END 2025-01-15 13:30 ==
LOC: ER 09:58
DX: S01.01XA Laceration without foreign body of scalp, initial encounter (principal); E78.5 Hyperlipidemia, unspecified; I11.9 Hypertensive heart disease without heart failure; F03.90 Unspecified dementia, unspecified severity, without behavioral disturbance, psychotic disturbance, mood disturbance, and anxiety; Z86.718 Personal history of other venous thrombosis and embolism; Z79.899 Other long term (current) drug therapy; Z79.82 Long term (current) use of aspirin; Z79.02 Long term (current) use of antithrombotics/antiplatelets; Z79.01 Long term (current) use of anticoagulants; Z60.2 Problems related to living alone; W19.XXXA Unspecified fall, initial encounter; Y93.89 Activity, other specified; Y92.89 Other specified places as the place of occurrence of the external cause; Y99.8 Other external cause status
CPT/HCPCS: 70450-TC; 71045-TC; 72125-TC; 73090-TC; 73521